=== PATIENT | female | born 1985 | race American Indian/Alaskan Native ===

== ENCOUNTER 2018-10-29 17:25 | Emergency (ER) | payer SELFPAY ==
--- NOTE | 2018-10-29 17:35 | Emergency Department Report ---
Blank Doc - Documentation Documentation: This is a 33-year-old female that presents with uncontrolled HTN. Stated was diagnosed with HTN while but denies taking and mediations Also has acute onset of headache. This initial assessment/diagnostic orders/clinical plan/treatment(s) is/are subject to change based on patient's health status, clinical progression and re- assessment by fellow clinical providers in the ED. Further treatment and workup at subsequent clinical providers discretion. Patient/guardians urged not to elope from the ED as their condition may be serious if not clinically assessed and managed. Initial orders include: 1- Patient sent to [facility] for further evaluation and treatment 2- CT head
[2018-10-29 17:36] VITALS: BP 171/80
== END 2018-10-29 19:45 | disposition left against medical advice (07) ==
LOC: ED 17:25
DX: I10 Essential (primary) hypertension (principal); Z53.21 Procedure and treatment not carried out due to patient leaving prior to being seen by health care provider
CPT/HCPCS: 70450